=== PATIENT | male | born 1990 | race Caucasian/White ===

== ENCOUNTER 2017-02-28 03:00 | Emergency (ER) | payer OTHER ==
[~2017-02-28] VITALS: Ht 188 cm; Wt 88.5 kg
--- NOTE | 2017-02-28 03:26 | ED GI/GU/ABDOMINAL COMPLAINT ---
History of Present Illness General Chief Complaint: Abdominal Pain/Flank Pain Stated Complaint: "PER PT ABD PAIN" Source: patient Exam Limitations: no limitations Vital Signs & Intake/Output Vital Signs & Intake/Output Vital Signs Date Time Temp Pulse Resp B/P B/P Pulse O2 O2 Flow FiO2 Mean Ox Delivery Rate 02/287 98.2 70 18 135/86 100 Room Air Allergies Coded Allergies: cephalexin (From [employer]) (Mild, HIVES 02/28/17) Reconcile Medications Pantoprazole Sodium (Protonix) 40 MG TABLET.DR 1 TAB PO DAILY gastritis/reflux Sucralfate (Carafate) 1 GRAM TABLET 1 TAB PO 4 TIMES/DAY gastritis/reflux Triage Note: PT TO ED C/O 10 MIDEPIGASTRIC PAIN. PT STATES ABD PAIN IS INTERMITTENT "STRONG ACHE" THAT STARTED AROUND 2100 TONIGHT. PT HAS NOT EATEN ANYTHING OUT OF THE ORDINARY OR BEGAN ANY NEW MEDICATIONS. PT C/O OF NAUSEA BUT DENIES ANY V/D. Triage Nurses Notes Reviewed? yes Onset: Gradual Duration: hour(s): Timing: recent history Quality/Severity: burning Location: epigastric Radiation: no radiation Activities at Onset: none Prior Abdominal Problems: similar symptoms Modifying Factors: Worsens With: palpation. Associated Symptoms: abdominal pain HPI: 26 yo gentleman, h/o reflux presents with with mid epigastric abdominal discomfort. He notes, "I didn't feel well all day and didn't eat much... and then around 9pm , I had really bad abdominal burning pain... I started taking tums but it didn' t really help." He notes nausea, but no vomiting, chills, right lower quadrant discomfort. He is otherwise well. Past History Travel History Traveled to [place] past 21 day No Medical History Any Pertinent Medical History? see below for history Gastrointestinal: GERD Surgical History Surgical History: none Family History Hx Contributory? No Review of Systems Review of Systems Constitutional: Reports: no symptoms. EENTM: Reports: no symptoms. Respiratory: Reports: no symptoms. Cardiovascular: Reports: no symptoms. GI: Reports: no symptoms. Genitourinary: Reports: no symptoms. Musculoskeletal: Reports: no symptoms. Skin: Reports: no symptoms. Neurological/Psychological: Reports: no symptoms. Hematologic/Endocrine: Reports: no symptoms. Immunologic/Allergic: Reports: no symptoms. All Other Systems: Reviewed and Negative Physical Exam Physical Exam General Appearance: well developed/nourished, mild distress Head: atraumatic, normal appearance Eyes: Bilateral: normal appearance. Ears, Nose, Throat, Mouth: hearing grossly normal, moist mucous membrane Neck: normal inspection, supple, full range of motion, normal alignment Respiratory: normal breath sounds, chest non-tender, no respiratory distress, quiet respiration Cardiovascular: regular rate/rhythm Gastrointestinal: normal bowel sounds, soft, mild mid epigastric tenderness. no rlq tenderness. negative tree's sign. no rebound. no guarding. Back: normal inspection Extremities: normal range of motion Neurologic/Psych: no motor/sensory deficits, awake, alert, oriented x 3 Skin: intact, normal color, warm/dry Core Measures ACS in differential dx? No Severe Sepsis Present: No Septic Shock Present: No Progress Differential Diagnosis: biliary colic, gastritis, hepatitis Plan of Care: Orders Procedure Date/time Status LIPASE 02/28 0303 Complete HEPATIC FUNCTION PANEL 02/28 0303 Complete CBC WITHOUT DIFFERENTIAL 02/28 0303 Complete BASIC METABOLIC PANEL 02/28 0303 Complete AMYLASE 02/28 0303 Complete Current Medications Sig/Swetha Start time Last Medication Dose Stop Time Status Admin Ondansetron HCl 4 MG ONCE ONE 02/28 0400 UNVr 02/28 (Zofran) 02/28 0401 0400 Acetaminophen 1,000 MG ONCE ONE 02/28 0345 UNVr 02/28 (Ofirmev) 02/28 0359 0400 N/A 1 UNIT (No Carrier) Pantoprazole Sodium 40 MG ONCE ONE 02/28 0345 UNVr 02/28 (Protonix) 02/28 0346 0400 Sodium Chloride 1,000 ML BOLUS ONE 02/28 0345 UNVr 02/28 (Normal Saline 0.9%) 02/28 0444 0400 Laboratory Tests 02/28/17 0325: Anion Gap 13, Estimated GFR > 60, BUN/Creatinine Ratio 11.3, Glucose 89, Calcium 10.5 H, Total Bilirubin 1.1, Direct Bilirubin 0.2, AST 23, ALT 39, Alkaline Phosphatase 92, Total Protein 7.3, Albumin 4.6, Amylase 44, Lipase 43, CBC w Diff NO MAN DIFF REQ, RBC 5.26, MCV 90.9, MCH 31.4 H, RDW 12.3, MPV 9.5, Gran % 70.2, Lymphocytes % 23.3, Monocytes % 4.4, Eosinophils % 1.7, Basophils % 0.4, Absolute Granulocytes 8.3 H, Absolute Lymphocytes 2.8, Absolute Monocytes 0.5, Absolute Eosinophils 0.2, Absolute Basophils 0, PUBS MCHC 34.6 Initial ED EKG: none Departure Departure Disposition: HOME OR SELF CARE Condition: Stable Clinical Impression Primary Impression: Abdominal pain Referrals: BETTE COTO MD (PCP/Family) Departure Forms: Customer Survey General Discharge Information Prescriptions: Current Visit Scripts Pantoprazole Sodium (Protonix) 1 TAB PO DAILY #30 TAB Sucralfate (Carafate) 1 TAB PO 4 TIMES/DAY #120 TAB Ref 1 Comments 02/28/17, 4:12am.... pt feeling better after supportive medications. no tenderness to palpation... labs benign... pt safe for discharge. wrote rx for protonix/carafate, referred to GI. Counseled close follow up.
[2017-02-28 03:33] LABS: ABSOLUTE BASOPHIL COUNT 0 /CUMM (0.0-0.2); ABSOLUTE EOSINOPHIL COUNT 0.2 /CUMM (0.0-0.7); ABSOLUTE GRANULOCYTE CT 8.3 /CUMM (1.4-6.5); ABSOLUTE LYMPH COUNT 2.8 /CUMM (1.2-3.4); ABSOLUTE MONOCYTE COUNT 0.5 /CUMM (0.10-0.60); BASOPHIL % 0.4 % (0.0-2.0); EOSINOPHIL % 1.7 % (0-5); GRANULOCYTE % 70.2 % (42.2-75.2); HEMATOCRIT 47.8 % (42-52); MEAN CORPUSCULAR HGB 31.4 PG (27.0-31.0); MEAN CORPUSCULAR HGB CONC 34.6 G/DL (33.0-37.0); MEAN CORPUSCULAR VOLUME 90.9 FL (80.0-94.0); MEAN PLATELET VOLUME 9.5 FL (7.4-10.4); PLATELET COUNT 201 /CUMM (130-400); RBC DISTRIBUTION WIDTH 12.3 % (11.5-14.5); RED BLOOD CELL CT 5.26 /CUMM (4.70-6.10); WHITE BLOOD CELL COUNT 11.9 /CUMM (4.8-10.8)
[2017-02-28] MEDS ORDERED: PROTONIX40 M3 PO (04:13)
[2017-02-28] MEDS ORDERED: CARAFATE1 G1 PO (04:13)
[2017-02-28 04:19] VITALS: BP 132/85
== END 2017-02-28 04:20 ==
LOC: ERH 03:00 → CANBEDREQ 03:28 → ERH 04:20
PROVIDERS: Pediatrics
DX: R10.13 Epigastric pain (principal)
CPT/HCPCS: 96374; 96375; J0131; J2405